=== PATIENT | female | born 1975 | race Caucasian/White ===

== ENCOUNTER 2017-10-02 13:18 | Emergency (ER) | payer OTHER ==
[~2017-10-02 13:18] MED LIST: ACYC800T PO; ALPR0.5T PO; DICY20TA3 PO; FLUT9.9S NS; HYDR-971 PO; HYDR1TAB12 PO; HYDR1TAB14 PO; LIDO700A4 TP; LORA10TA68 PO; MULT-208 PO; ONDA8TAB12 PO; PRED50TA PO; SIME80TA14 PO; SULF1TAB24 PO
[2017-10-02 13:20] VITALS: BP 140/74
[2017-10-02] MEDS ORDERED: IV NORMAL SALINE 1,000ML 1,000 ML IV SCH (13:37)
[2017-10-02] MEDS ORDERED: IOHEXOL 240 MG/ML 50ML VIAL. PO ONE (14:00)
[2017-10-02] MEDS ORDERED: ONDANSETRON PF 4 MG/2 ML VIAL. IV ONE (14:00)
[2017-10-02] MEDS ORDERED: IOHEXOL 300 MG/ML 75 ML VIAL. IV ONE (14:00)
[2017-10-02 14:07] LABS: BASO % 1 % (0-3); EOS # 0.1 x10^3/uL (0.0-0.7); EOS % 1 % (0-3); HEMATOCRIT 41.4 % (36.0-47.0); HEMOGLOBIN 14.4 g/dL (12.0-15.5); LYMPH # 2.1 x10^3/uL (1.0-4.8); LYMPH % 41 % (24-48); MEAN CORPUSCULAR HEMOGLOBIN 32 pg (25-35); MEAN CORPUSCULAR HGB CONC 35 g/dL (31-37); MEAN CORPUSCULAR VOLUME 91 fL (79-100); MONO # 0.4 x10^3/uL (0.0-1.1); MONO % 7 % (0-9); NEUT # 2.5 x10^3uL (1.8-7.7); NEUT % 50 % (31-73); PLATELET COUNT 227 x10^3/uL (140-400); RED BLOOD COUNT 4.57 x10^6/uL (3.50-5.40)
[2017-10-02 14:18] LABS: ALBUMIN 4.1 g/dL (3.4-5.0); ALBUMIN/GLOBULIN RATIO 1.1 (1.0-1.7); CALCIUM 9.7 mg/dL (8.5-10.1); CREATININE 0.7 mg/dL (0.6-1.0); GFR 92.2; POTASSIUM 3.5 mmol/L (3.5-5.1); TOTAL BILIRUBIN 0.5 mg/dL (0.2-1.0); TOTAL PROTEIN 7.9 g/dL (6.4-8.2)
--- NOTE | 2017-10-02 15:05 | RAD ---
PQRS Compliance Statement: One or more of the following individualized dose reduction techniques were utilized for this examination: 1. Automated exposure control 2. Adjustment of the mA and/or kV according to patient size 3. Use of iterative reconstruction technique CT ABD PELV W/ORAL IV CONTRAST Clinical Indication: right lower quadrant pain x4 days with vomiting and fever. Comparison: CT abdomen pelvis with contrast 06/27/2016. Technique: Helical CT imaging of the abdomen and pelvis is performed after 75 cc Omnipaque 300 IV contrast. Oral contrast also given. Findings: Minimal dependent atelectasis the lung bases. Cardiac size normal. Liver, gallbladder, spleen, pancreas, adrenal glands, and abdominal aorta are normal. Kidneys enhance symmetrically. Small bilateral extra renal pelves. No hydronephrosis. Stomach unremarkable. No dilated small bowel. There is no colon wall thickening. The appendix is normal. No abdominal adenopathy or free fluid. The urinary bladder is normal. Uterus surgically absent. There is air in the vagina. No pelvic free fluid. No acute bone abnormality. IMPRESSION: No acute abdominal or pelvic abnormality. The appendix is normal.
[2017-10-02] MEDS ORDERED: ONDA4TAB10 SL (15:52)
[2017-10-02] MEDS ORDERED: HYDR-971 PO (15:52)
--- NOTE | 2017-10-02 15:52 | PHYS DOC ---
Past History Past Medical History: Anxiety, Other Past Surgical History: Hysterectomy, Tonsillectomy Smoking: Cigarettes Alcohol Use: None Drug Use: None Adult General Chief Complaint Chief Complaint: ABDOMINAL PAIN HPI HPI 41-year-old female patient with history of anxiety complaining of right lower abdominal pain as a constant aching pain for the last 5 days with episodes of sharp pain that happens several times a day and last about 10 minutes. Patient denies radiation of pain and rated her pain from 3 with aching pain and 9/10 with sharp pain. Patient complaining of anorexia and nausea and constipation for the last first couple days and states she has had more than 10 episodes of nonbloody diarrhea since yesterday and one episode of vomiting today. Patient states she had a low-grade temperature of 100 yesterday. Patient was seen by her primary care physician today who recommended CT of abdomen and pelvis and went to [facility] and sent tto this emergency room because of technical problem with CT for obtaining CT of abdomen. Review of Systems Review of Systems Constitutional: Reports fever and anorexia[] Eyes: Denies change in visual acuity, redness, or eye pain [] HENT: Denies nasal congestion or sore throat [] Respiratory: Denies cough or shortness of breath [] Cardiovascular: No additional information not addressed in HPI [] GI: Reports abdominal pain, nausea, vomiting, diarrhea [] : Denies dysuria or hematuria [] Musculoskeletal: Denies back pain or joint pain [] Integument: Denies rash or skin lesions [] Neurologic: Denies headache, focal weakness or sensory changes [] Endocrine: Denies polyuria or polydipsia [] All other systems were reviewed and found to be within normal limits, except as documented in this note. Current Medications Current Medications Current Medications Medications (Trade) Dose Ordered Sig/Ge Start Time Stop Time Status Last Admin Dose Admin Fentanyl Citrate (Fentanyl 2ml Vial) 50 mcg 1X ONCE 10/02/17 14:00 10/02/17 14:01 DC 10/02/17 14:18 50 MCG Iohexol (Omnipaque 240 Mg/ml) 50 ml 1X ONCE 10/02/17 14:00 10/02/17 14:01 DC Iohexol (Omnipaque 300 Mg/ml) 75 ml 1X ONCE 10/02/17 14:00 10/02/17 14:01 DC 10/02/17 14:45 75 ML Ondansetron HCl (Zofran) 4 mg 1X ONCE 10/02/17 14:00 10/02/17 14:01 DC 10/02/17 14:17 4 MG Sodium Chloride 1,000 ml @ 1,000 mls/hr Q1H 10/02/17 13:37 10/02/17 14:36 DC 10/02/17 14:17 1,000 MLS/HR Allergies Allergies Allergies Coded Allergies Type Severity Reaction Last Updated Verified NSAIDS (Non-Steroidal Anti-Inflamma Allergy Intermediate history stomach ulcers 06/22/16 Yes codeine Allergy Mild 06/22/16 Yes ibuprofen Allergy Unknown 06/22/16 Yes Physical Exam Physical Exam Constitutional: Well developed, well nourished, mild distress, non-toxic appearance. [] HENT: Normocephalic, atraumatic, bilateral external ears normal, oropharynx moist, no oral exudates, nose normal. [] Eyes: PERRLA, EOMI, conjunctiva normal, no discharge. [] Neck: Normal range of motion, no tenderness, supple, no stridor. [] Cardiovascular:Heart rate regular rhythm, no murmur [] Lungs & Thorax: Bilateral breath sounds clear to auscultation [] Abdomen: Bowel sounds normal, soft, no tenderness, no masses, no pulsatile masses right lower quadrant guarding. [] Skin: Warm, dry, no erythema, no rash. [] Back: No tenderness, no CVA tenderness. [] Extremities: No tenderness, no cyanosis, no clubbing, ROM intact, no edema. [] Neurologic: Alert and oriented X 3, normal motor function, normal sensory function, no focal deficits noted. [] Psychologic: Affect normal, judgement normal, mood normal. [] Current Patient Data Vital Signs Vital Signs Date Time Temp Pulse Resp B/P (MAP) Pulse Ox O2 Delivery O2 Flow Rate FiO2 10/02/17 13:20 98.2 92 16 98 Lab Results Laboratory Tests Test 10/02/17 13:45 White Blood Count 5.0 x10^3/uL (4.0-11.0) Red Blood Count 4.57 x10^6/uL (3.50-5.40) Hemoglobin 14.4 g/dL (12.0-15.5) Hematocrit 41.4 % (36.0-47.0) Mean Corpuscular Volume 91 fL (79-100) Mean Corpuscular Hemoglobin 32 pg (25-35) Mean Corpuscular Hemoglobin Concent 35 g/dL (31-37) Red Cell Distribution Width 13.0 % (11.5-14.5) Platelet Count 227 x10^3/uL (140-400) Neutrophils (%) (Auto) 50 % (31-73) Lymphocytes (%) (Auto) 41 % (24-48) Monocytes (%) (Auto) 7 % (0-9) Eosinophils (%) (Auto) 1 % (0-3) Basophils (%) (Auto) 1 % (0-3) Neutrophils # (Auto) 2.5 x10^3uL (1.8-7.7) Lymphocytes # (Auto) 2.1 x10^3/uL (1.0-4.8) Monocytes # (Auto) 0.4 x10^3/uL (0.0-1.1) Eosinophils # (Auto) 0.1 x10^3/uL (0.0-0.7) Basophils # (Auto) 0.0 x10^3/uL (0.0-0.2) Sodium Level 140 mmol/L (136-145) Potassium Level 3.5 mmol/L (3.5-5.1) Chloride Level 101 mmol/L (98-107) Carbon Dioxide Level 30 mmol/L (21-32) Anion Gap 9 (6-14) Blood Urea Nitrogen 13 mg/dL (7-20) Creatinine 0.7 mg/dL (0.6-1.0) Estimated GFR (Cockcroft-Gault) 92.2 BUN/Creatinine Ratio 19 (6-20) Glucose Level 86 mg/dL (70-99) Calcium Level 9.7 mg/dL (8.5-10.1) Total Bilirubin 0.5 mg/dL (0.2-1.0) Aspartate Amino Transferase (AST) 18 U/L (15-37) Alanine Aminotransferase (ALT) 28 U/L (14-59) Alkaline Phosphatase 113 U/L (46-116) Total Protein 7.9 g/dL (6.4-8.2) Albumin 4.1 g/dL (3.4-5.0) Albumin/Globulin Ratio 1.1 (1.0-1.7) Lipase 79 U/L (73-393) EKG EKG [] Radiology/Procedures Radiology/Procedures [] Course & Med Decision Making Course & Med Decision Making Pertinent Labs and Imaging studies reviewed. (See chart for details) Evaluation of patient in ER showed 41-year-old female patient with abdominal pain for 5 days and episode of nausea and vomiting and diarrhea. Patient had unremarkable physical exam except for right lower quadrant guarding. Labs and CT and abdomen and pelvis was unremarkable. Patient treated with IV fluid and Zofran and fentanyl and felt better. Plan discharge patient home with diagnosis of acute gastroenteritis. Patient instructed to avoid of solid food for 24 hours after her last episode of diarrhea. [] Dragon Disclaimer Dragon Disclaimer This electronic medical record was generated, in whole or in part, using a voice recognition dictation system. Departure Departure: Impression: Primary Impression: Acute gastroenteritis Additional Impression: Abdominal pain Disposition: HOME, SELF-CARE (At 1550) Condition: IMPROVED Referrals: REGULO CHERRY MD (PCP) Patient Instructions: Viral Gastroenteritis Additional Instructions: Drink plenty of liquids Follow-up with your primary care physician in 3-5 days Return to ER if not getting better Do not eat solid food for 24 hours after your last episode of diarrhea Scripts Ondansetron (ZOFRAN ODT) 4 Mg Tab.rapdis 1 TAB SL Q8HRS, #15 TAB Prov: JOSEPH CASTELLANO MD 10/02/17 Hydrocodone Bit/Acetaminophen (NORCO 5-325 TABLET) 1 Each Tablet 1 TAB PO PRN Q6HRS Y for PAIN, #10 TAB 0 Refills Prov: JOSEPH CASTELLANO MD 10/02/17 Problem Qualifiers JOSEPH CASTELLANO MD Oct 02, 2017 15:52
== END 2017-10-02 16:05 | disposition home or self-care (01) ==
LOC: ER 13:18
DX: K52.89 Other specified noninfective gastroenteritis and colitis (principal); F41.9 Anxiety disorder, unspecified; F17.210 Nicotine dependence, cigarettes, uncomplicated; Z88.5 Allergy status to narcotic agent; Z88.6 Allergy status to analgesic agent
CPT/HCPCS: 36415; 74177; 80053; 83690; 85025; 96361; 96374; 96375; 99285; J2405; J3010; Q9967; J7030